=== PATIENT | male | born 1965 | race Caucasian/White ===

== ENCOUNTER → 2016-07-10 | Outpatient (CLI) | payer MEDICAID ==
[2016-07-10 12:51] LABS: Hemoglobin A1C 8.6 % (4.2-6.1)
== END | disposition home or self-care (01) ==
LOC: LABWHC1 08:28
PROVIDERS: ATTEND Family Medicine
DX: E11.9 Type 2 diabetes mellitus without complications (principal)
CPT/HCPCS: 36415; 83036

== ENCOUNTER → 2017-01-01 | Outpatient (CLI) | payer MEDICAID ==
[2017-01-01 10:45] LABS: Hemoglobin A1C 8.1 % (4.2-6.1)
== END | disposition home or self-care (01) ==
LOC: LABWHC1 09:39
PROVIDERS: ATTEND Family Medicine
DX: E11.9 Type 2 diabetes mellitus without complications (principal)
CPT/HCPCS: 36415; 83036

== ENCOUNTER → 2017-05-28 | Outpatient (CLI) | payer MEDICAID ==
[2017-05-28 08:16] LABS: Basophils # (A) 0.1 k/uL (0-0.2); Basophils % (A) 1 %; Eosinophils # (A) 0.3 k/uL (0-0.7); Eosinophils % (A) 3 %; HCT 52.7 % (39.0-53.0); HGB 17.2 gm/dL (13.0-17.5); Lymphocytes # (A) 2.8 k/uL (1.0-4.8); Lymphocytes % (A) 36 %; MCH 29.9 pg (25.0-35.0); MCHC 32.6 g/dL (31.0-37.0); MCV 91.8 fL (80.0-100.0); Mean Platelet Volume 7.6; Monocytes # (A) 0.5 k/uL (0-1.0); Monocytes % (A) 6 %; Neutrophils # (A) 3.9 k/uL (1.3-7.7); Neutrophils % (A) 50 %; Platelet Count 233 k/uL (150-450); RBC 5.74 m/uL (4.30-5.90); RDW 12.8 % (11.5-15.5); WBC 7.8 k/uL (3.8-10.6)
[2017-05-28 10:03] LABS: ALT 36 U/L (21-72); AST 31 U/L (17-59); Albumin 4.7 g/dL (3.5-5.0); Alkaline Phosphatase 69 U/L (38-126); Anion Gap 15 mmol/L; Blood Urea Nitrogen 18 mg/dL (9-20); Calcium 10.4 mg/dL (8.4-10.2); Carbon Dioxide 26 mmol/L (22-30); Chloride 102 mmol/L (98-107); Cholesterol 140 mg/dL (<200); Glucose 175 mg/dL (74-99); HDL Cholesterol 41 mg/dL (40-60); LDL Cholesterol,Calculated 54 mg/dL (0-99); Potassium 5.7 mmol/L (3.5-5.1); Sodium 143 mmol/L (137-145); Total Bilirubin 0.5 mg/dL (0.2-1.3); Total Protein 7.9 g/dL (6.3-8.2); Triglycerides 223 mg/dL (<150)
[2017-05-28 10:32] LABS: Prostate Specific Antigen 0.87 ng/mL (0.00-4.00)
[2017-05-28 20:25] LABS: Hemoglobin A1C 7.6 % (4.0-6.0)
== END | disposition home or self-care (01) ==
LOC: LABWHC1 07:35
PROVIDERS: ATTEND Family Medicine
DX: E11.9 Type 2 diabetes mellitus without complications (principal); I25.10 Atherosclerotic heart disease of native coronary artery without angina pectoris; E55.9 Vitamin D deficiency, unspecified; Z12.5 Encounter for screening for malignant neoplasm of prostate
CPT/HCPCS: 36415; 80053; 80061; 82306; 83036; 84153; 84443; 85025

== ENCOUNTER → 2018-05-05 | Outpatient (CLI) | payer MEDICAID ==
[2018-05-05 10:33] LABS: Basophils # (A) 0.1 k/uL (0-0.2); Basophils % (A) 1 %; Eosinophils # (A) 0.2 k/uL (0-0.7); Eosinophils % (A) 2 %; HCT 50.1 % (39.0-53.0); HGB 16.8 gm/dL (13.0-17.5); Lymphocytes % (A) 25 %; MCH 30.2 pg (25.0-35.0); MCHC 33.5 g/dL (31.0-37.0); MCV 90.1 fL (80.0-100.0); Mean Platelet Volume 7.5; Monocytes # (A) 0.5 k/uL (0-1.0); Monocytes % (A) 6 %; Neutrophils # (A) 5.1 k/uL (1.3-7.7); Neutrophils % (A) 64 %; Platelet Count 234 k/uL (150-450); RBC 5.55 m/uL (4.30-5.90); RDW 13.1 % (11.5-15.5); WBC 7.9 k/uL (3.8-10.6)
[2018-05-05 17:49] LABS: Albumin 4.9 g/dL (3.80-4.90); Albumin/Globulin Ratio 2.33 (1.20-2.10); Anion Gap 8.7 mmol/L (4.00-12.00); Calcium 9.8 mg/dL (8.7-10.3); Carbon Dioxide 27.3 mmol/L (21.6-31.8); Globulin 2.1 g/dL (1.6-3.3); LDL Cholesterol,Calculated 56.8 mg/dL (0.0-131.0); Potassium 4.8 mmol/L (3.5-5.5); Total Bilirubin 0.3 mg/dL (0.3-1.2); VLDL Calculation 53.2 mg/dL (5.00-40.00)
== END | disposition home or self-care (01) ==
LOC: LABWHC1 10:06
PROVIDERS: ATTEND Internal Medicine Interventional Cardiology
DX: I25.10 Atherosclerotic heart disease of native coronary artery without angina pectoris (principal); E11.9 Type 2 diabetes mellitus without complications; E78.2 Mixed hyperlipidemia
CPT/HCPCS: 36415; 80053; 80061; 84443; 85025

== ENCOUNTER → 2018-05-12 | Outpatient (CLI) | payer MEDICAID ==
[~2018-05-12] MED LIST: REGADENOSON 0.4 MG/5 ML SYRINGE IV ONE
--- NOTE | 2018-05-12 12:09 | EST ---
EXERCISE STRESS AGE: 53 SEX: M HT: 68" WT: 230 PROTOCOL: Lexiscan Cardiolite Stress Test HEART RATE REST: 72 BLOOD PRESSURE REST: 151/66 MAXIMUM HEART RATE ACHIEVED: 98 MAXIMUM BLOOD PRESSURE: 175/76 CLINICAL INFORMATION: Baseline rhythm is sinus mechanism, rate 72, normal axis and intervals, normal electrocardiogram. Baseline blood pressure 151/66 mmHg. Patient received injection of Lexiscan. Electrocardiographic monitoring revealed no evidence of diagnostic ischemic ST deviation. Cardiolite was injected per protocol. CONCLUSION: 1. Nondiagnostic electrocardiograph stress testing. 2. Nuclear images will be reported separately. MMODL / IJN: [id number] /
== END | disposition home or self-care (01) ==
LOC: RADNMMAIN 07:54
PROVIDERS: ATTEND Internal Medicine Interventional Cardiology
DX: I25.10 Atherosclerotic heart disease of native coronary artery without angina pectoris (principal)
CPT/HCPCS: 93017; J2785

== ENCOUNTER → 2018-05-12 | Outpatient (CLI) | payer MEDICAID ==
--- NOTE | 2018-05-12 14:58 | NM ---
EXAMINATION TYPE: NM stress lexiscan cardiolite DATE OF EXAM: 05/12/2018 COMPARISON: NONE HISTORY: Precordial chest pain and abnormal EKG TECHNIQUE: After the intravenous administration of 10.34 mCi Tc 99m Sestamibi - Cardiolite resting S PECT images acquired 45 minutes post injection. The patient received 0.4mg Lexiscan, 24.5 mCi Tc 99m Sestamibi - Stress images obtained [address] injection FINDINGS: Review of stress and rest SPECT images demonstrates no distinct perfusion abnormality. Gated analysi s shows normal wall motion with an estimated left ventricular ejection fraction of 64 %. IMPRESSION: No scintigraphic evidence for reversible ischemia.
== END ==
LOC: RADECHMAIN 08:36
PROVIDERS: ATTEND Internal Medicine Interventional Cardiology
DX: I25.10 Atherosclerotic heart disease of native coronary artery without angina pectoris (principal)
CPT/HCPCS: 78452; A9500

== ENCOUNTER → 2019-03-19 | Outpatient (CLI) | payer MEDICAID ==
--- NOTE | 2019-03-20 10:43 | US ---
EXAMINATION TYPE: US kidneys/renal and bladder DATE OF EXAM: 03/19/2019 COMPARISON: NONE CLINICAL HISTORY: N28.9 RENAL INSUFFICIENCY. Diabetic EXAM MEASUREMENTS: Right Kidney: 11.6 x 6.7 x 5.2 cm Left Kidney: 13.2 x 6.0 x 6.3 cm Post Void Residual Volume: 203.1 mL Right Kidney: No hydronephrosis or masses seen Left Kidney: No hydronephrosis or masses seen Bladder: wnl Bilateral Jets seen: yes Normal Post Void Residual: no, abnormal post void volume as is greater than 50.0ml. There is no evidence for hydronephrosis at this point in time. No nephrolithiasis is seen. No matthew s are identified. The urinary bladder is anechoic. Bilateral ureteral jets are seen. IMPRESSION: No distinct abnormality appreciated.
== END | disposition home or self-care (01) ==
LOC: RADUSWWP 15:46
PROVIDERS: ATTEND Family Medicine
DX: N28.9 Disorder of kidney and ureter, unspecified (principal)
CPT/HCPCS: 76770

== ENCOUNTER → 2019-05-26 | Outpatient (CLI) | payer MEDICAID ==
[2019-05-26 17:38] LABS: African American GFR (CKD) 71.7 (60.0-200.0); Anion Gap 7.4 mmol/L (4.00-12.00); BUN/Creat Ratio 21.54 Ratio (12.00-20.00); Calcium 9.7 mg/dL (8.7-10.3); Carbon Dioxide 23.6 mmol/L (21.6-31.8); Chol/HDL Ratio 3.27; LDL Cholesterol,Calculated 62.4 mg/dL (0.0-131.0); Non-African American GFR(CKD) 61.9 (60.0-200.0); VLDL Calculation 37.6 mg/dL (5.00-40.00)
[2019-05-26 18:11] LABS: Microalbumin Creatinine Ratio <30 mg/g Creat (0-30); Urine Creatinine 59.6 mg/dL
[2019-05-26 18:35] LABS: Hemoglobin A1C 8.6 % (4.0-6.0)
== END | disposition home or self-care (01) ==
LOC: LABWHC1 10:23
PROVIDERS: ATTEND Nurse Practitioner
DX: E11.65 Type 2 diabetes mellitus with hyperglycemia (principal); E78.5 Hyperlipidemia, unspecified
CPT/HCPCS: 36415; 80048; 80061; 82043; 82570; 83036

== ENCOUNTER → 2019-08-27 | Outpatient (CLI) | payer MEDICAID ==
[2019-08-27 17:00] LABS: Hemoglobin A1C 8.2 % (4.0-6.0)
== END | disposition home or self-care (01) ==
LOC: LABWHC1 08:27
PROVIDERS: ATTEND Internal Medicine
DX: E11.65 Type 2 diabetes mellitus with hyperglycemia (principal)
CPT/HCPCS: 36415; 83036

== ENCOUNTER → 2020-03-14 | Outpatient (CLI) | payer MEDICAID ==
[2020-03-14 14:17] LABS: Appearance,Urine Clear (Clear); Bilirubin,Urine Negative (Negative); Blood,Urine Negative (Negative); Color,Urine Colorless; Glucose,Urine (UA) 4+ (Negative); Ketones,Urine Negative (Negative); Leukocyte Esterase,Urine Negative (Negative); Nitrite,Urine Negative (Negative); PH, Urine 5.5 (5.0-8.0); Protein,Urine Negative (Negative); Specific Gravity,Urine 1.028 (1.001-1.035); Urobilinogen,Urine <2.0 mg/dL (<2.0)
[2020-03-14 14:30] LABS: Basophils # (A) 0.1 k/uL (0-0.2); Basophils % (A) 1 %; Eosinophils # (A) 0.2 k/uL (0-0.7); Eosinophils % (A) 2 %; HCT 49.4 % (39.0-53.0); Lymphocytes # (A) 2.1 k/uL (1.0-4.8); Lymphocytes % (A) 27 %; MCH 29.3 pg (25.0-35.0); MCHC 32.4 g/dL (31.0-37.0); MCV 90.5 fL (80.0-100.0); Mean Platelet Volume 8.1; Monocytes # (A) 0.5 k/uL (0-1.0); Monocytes % (A) 7 %; Neutrophils # (A) 4.7 k/uL (1.3-7.7); Neutrophils % (A) 61 %; Platelet Count 232 k/uL (150-450); RBC 5.46 m/uL (4.30-5.90); RDW 12.9 % (11.5-15.5); WBC 7.8 k/uL (3.8-10.6)
[2020-03-14 19:49] LABS: African American GFR (CKD) 65.1 (60.0-200.0); Albumin 4.7 g/dL (3.80-4.90); Albumin/Globulin Ratio 1.96 (1.60-3.17); Anion Gap 9.5 mmol/L (4.00-12.00); BUN/Creat Ratio 12.86 Ratio (12.00-20.00); Calcium 10.5 mg/dL (8.7-10.3); Carbon Dioxide 24.5 mmol/L (21.6-31.8); Globulin 2.4 g/dL (1.6-3.3); Non-African American GFR(CKD) 56.2 (60.0-200.0); Potassium 5.2 mmol/L (3.5-5.5); Total Bilirubin 0.3 mg/dL (0.3-1.2); Total Protein 7.1 g/dL (6.2-8.2)
[2020-03-14 20:28] LABS: Hemoglobin A1C 10.1 % (4.0-6.0)
== END | disposition home or self-care (01) ==
LOC: LABWHC1 12:14
PROVIDERS: ATTEND Family Medicine
DX: I10 Essential (primary) hypertension (principal); E11.65 Type 2 diabetes mellitus with hyperglycemia; E55.9 Vitamin D deficiency, unspecified; R30.0 Dysuria; R35.0 Frequency of micturition
CPT/HCPCS: 36415; 80053; 81003; 82306; 83036; 84153; 84443; 85025; 87086

== ENCOUNTER 2022-09-14 09:44 | Day surgery (SDC) | payer MEDICAID ==
[~2022-09-14 09:44] MED LIST changes: +ALPRAZolam 0.25 MG TAB PO PRN; +ALPRAZolam 0.5 MG TAB PO PRN; +ASPIRIN 325 MG TAB PO PRN; +HEPARIN SODIUM,PORCINE 10,000 UNIT in SODIUM CHLORIDE 0.9% 1,000 ML IRRIGATION PRN; +HEPARIN SODIUM,PORCINE 2,500 UNIT in SODIUM CHLORIDE 0.9% 250 ML IRRIGATION PRN; -REGADENOSON 0.4 MG/5 ML SYRINGE IV ONE; +SODIUM CHLORIDE 0.9% 1,000 ML in EMPTY BAG 1 BAG IV ONE; +ZOLPIDEM 5 MG TAB PO PRN
[2022-09-14 10:13] VITALS: RESP 18; TEMP 97.7
[2022-09-14 10:16] LABS: Basophils # (A) 0.1 k/uL (0-0.2); Basophils % (A) 1 %; Eosinophils # (A) 0.2 k/uL (0-0.7); Eosinophils % (A) 2 %; HCT 50.6 % (39.0-53.0); HGB 16.6 gm/dL (13.0-17.5); Lymphocytes # (A) 1.8 k/uL (1.0-4.8); Lymphocytes % (A) 20 %; MCH 30.1 pg (25.0-35.0); MCHC 32.8 g/dL (31.0-37.0); MCV 91.8 fL (80.0-100.0); Mean Platelet Volume 8.6; Monocytes # (A) 0.6 k/uL (0-1.0); Monocytes % (A) 7 %; Neutrophils # (A) 5.9 k/uL (1.3-7.7); Neutrophils % (A) 67 %; Platelet Count 216 k/uL (150-450); RBC 5.52 m/uL (4.30-5.90); RDW 12.5 % (11.5-15.5); WBC 8.7 k/uL (3.8-10.6)
[2022-09-14 10:29] LABS: Glucose,Whole Blood 138 mg/dL (70-110)
[2022-09-14 10:31] LABS: Calcium 9.7 mg/dL (8.4-10.2); Potassium 4.8 mmol/L (3.5-5.1)
[2022-09-14] MEDS ORDERED: MIDAZOLAM 2 MG/2 ML VIAL IV ONE (11:59)
[2022-09-14] MEDS ORDERED: fentaNYL (PF) 50 MCG/ML 2 ML AMP IV ONE (11:59)
[2022-09-14] MEDS ORDERED: LIDOCAINE 1% INJ 10MG/ML (20 ML MDV) SQ ONE (11:59)
[2022-09-14] MEDS ORDERED: HEPARIN SODIUM 1,000 UN/ML (10ML VL) IV ONE (12:09)
[2022-09-14] MEDS ORDERED: IOPAMIDOL-250 100ML BTL INTRAARTER ONE (12:52)
[2022-09-14] MEDS ORDERED: CLOPIDOGREL 75 MG TAB PO ONE (12:55)
--- NOTE | 2022-09-14 13:06 | P.OP ---
Date of Procedure: 09/14/22 Description of Procedure: Pre-Op Dx: Left lower extremity claudication Colbert classification 3 Post-Op Dx: Left SFA chronic total occlusion Procedure: 1. Ultrasound guided right femoral artery access 2. Left selective angiogram 3. Percutaenous balloon angioplasty with 5 x 40 mm chocolate balloon followed by a 5 x 80 mm drug-eluting balloon 5. 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 Wood's office and found to have decreased blood flow on arterial Doppler with ABIs of 0.70 on the left. He states he can only walk 100-200 feet without significant cramping in his left calf. He is also experiencing some cramping at night. Operative narrative: After written and informed consent was obtained the patient all risks, benefits and complications were described patient is brought to the [facility] and laid supine position. The area of the right groin was prepped and draped in usual sterile fashion. Timeout was performed in normal fashion. Utilizing ultrasound the right femoral artery was accessed and a 5 F sheath was placed. 035 Glidewire was then placed into the aorta followed by an RBI catheter and the left iliac was accessed in an up and over fashion. Selective angiogram was then obtained of the left lower extremity demonstrating chronic total occlusion of the SFA with three-vessel takeoff and runoff to the ankle after reconstitution. Patient was given heparin and followed with ACTs. An 035 Glidewire advantage was then placed in an up and over fashion and the 5 F short sheath was removed and replaced with an up and over 6 F sheath. Selective angiogram was again obtained demonstrating occlusion of the left SFA roughly 30 mm. Utilizing 035 Glidewire and quick cross catheter the lesion was crossed and selective angiogram distally was obtained demonstrating good intraluminal access. Balloon angioplasty was then performed with a 5 x 40 mm chocolate balloon. Angiogram was then obtained demonstrating improved lumen but still with 45-50% stenosis. A 5 x 80 mm impact drug-eluting balloon was then placed and balloon angioplasty was performed. Final angiogram demonstrated 90% improvement of the lesion with good brisk flow to the ankle with two-vessel runoff. All guidewires and catheters were then removed the sheath was removed and replaced with a short 6 F sheath and utilizing a Vascade closure device the access was closed. Pressure was placed for hemostasis. The patient tolerated the procedure well and had palpable PT pulses and was sent to recovery.
[2022-09-14 16:15] VITALS: BP 102/59; PULSE 72
--- NOTE | 2022-09-14 17:12 | IR ---
EXAMINATION TYPE: IR angio abdominal w runoff DATE OF EXAM: 09/14/2022 FLUOROSCOPY Fluoroscopy time of 11.6 minutes was used during abdominal aortic injection with bilateral lower extr emity runoff for left leg pain. 16 image/s document/s the procedure. [id number].
== END 2022-09-14 16:18 | disposition home or self-care (01) ==
LOC: CATHCVL 09:44
PROVIDERS: ATTEND Surgery
DX: I70.213 Atherosclerosis of native arteries of extremities with intermittent claudication, bilateral legs (principal); I70.92 Chronic total occlusion of artery of the extremities; I25.10 Atherosclerotic heart disease of native coronary artery without angina pectoris; I10 Essential (primary) hypertension; E11.22 Type 2 diabetes mellitus with diabetic chronic kidney disease; E11.65 Type 2 diabetes mellitus with hyperglycemia; J45.909 Unspecified asthma, uncomplicated; E78.5 Hyperlipidemia, unspecified; Z79.4 Long term (current) use of insulin; Z79.82 Long term (current) use of aspirin; Z79.84 Long term (current) use of oral hypoglycemic drugs; Z79.899 Other long term (current) drug therapy; Z95.5 Presence of coronary angioplasty implant and graft; Z88.0 Allergy status to penicillin
CPT/HCPCS: 76937; 99152; 99153 ×3; 37224; 80048; 85025; C1894 ×2; C1769 ×5; C1887; C2623 ×2; C1760; J2250; J2001; J3010; J1644; Q9966; 75710

== ENCOUNTER → 2023-07-09 | Outpatient (CLI) | payer MEDICAID | END | disposition home or self-care (01) | LOC: LABWHC1 10:16 | PROVIDERS: ATTEND Family Medicine | DX: E11.65 Type 2 diabetes mellitus with hyperglycemia (principal) | CPT/HCPCS: 36415; 83036 ==

== ENCOUNTER → 2023-09-16 | Outpatient (CLI) | payer MEDICAID, OTHER ==
--- NOTE | 2023-09-17 22:25 | US ---
EXAMINATION TYPE: US kidneys/renal and bladder DATE OF EXAM: 09/16/2023 COMPARISON: US CLINICAL INDICATION: Male, 58 years old with history of R10.9 UNSPECIFIED ABDOMINAL PAIN; Pt states r ight flank pain EXAM MEASUREMENTS: Right Kidney: 10.9 x 5.4 x 6.9 cm Left Kidney: 12.5 x 5.6 x 4.8 cm Right Kidney: No hydronephrosis or masses seen Left Kidney: Lobulated contour, no evidence of hydro Bladder: wnl Bilateral Jets seen: No IMPRESSION: 1. No suspicious renal ultrasound abnormality.
== END | disposition home or self-care (01) ==
LOC: RADUSWWP 15:46
PROVIDERS: ATTEND Family Medicine
DX: R10.9 Unspecified abdominal pain (principal)
CPT/HCPCS: 76770

== ENCOUNTER 2024-08-08 08:22 | Day surgery (SDC) | payer OTHER ==
[2024-08-06 12:59] VITALS: BMI 36.5
[~2024-08-08 08:22] MED LIST changes: -ASPIRIN 325 MG TAB PO PRN; +HEPARIN SODIUM,PORCINE (1 ML) 2,500 UNIT in SODIUM CHLORIDE 0.9% 250 ML IRRIGATION PRN; -HEPARIN SODIUM,PORCINE 10,000 UNIT in SODIUM CHLORIDE 0.9% 1,000 ML IRRIGATION PRN; -HEPARIN SODIUM,PORCINE 2,500 UNIT in SODIUM CHLORIDE 0.9% 250 ML IRRIGATION PRN; -SODIUM CHLORIDE 0.9% 1,000 ML in EMPTY BAG 1 BAG IV ONE
[2024-08-08 08:40] VITALS: RESP 18; TEMP 98.1
[2024-08-08] MEDS: EMPTY BAG 1 BAG with SODIUM CHLORIDE 0.9% 1,000 ML IV SCH (08:41)
[2024-08-08] MEDS: IV FLUID CONTINUATION 1,000 ML IV ONE (08:42)
[2024-08-08 08:57] LABS: Basophils # (A) 0.04 10*3/uL (0.00-0.10); Basophils % (A) 0.7 %; Eosinophils # (A) 0.18 10*3/uL (0.04-0.35); Eosinophils % (A) 3.4 %; HCT 44.5 % (39.6-50.0); HGB 15.6 g/dL (13.0-17.0); Lymphocytes # (A) 1.42 10*3/uL (0.90-5.00); Lymphocytes % (A) 26.4 %; MCH 30.5 pg (27.0-32.0); MCHC 35.1 g/dL (32.0-37.0); MCV 86.9 fL (80.0-97.0); Mean Platelet Volume 11.1 fL (9.5-12.2); Monocytes # (A) 0.62 10*3/uL (0.20-1.00); Monocytes % (A) 11.5 %; Neutrophils % (A) 57.8 %; Platelet Count 184 10*3/uL (140-440); RBC 5.12 10*6/uL (4.40-5.60); RDW 12.1 % (11.5-14.5); WBC 5.37 10*3/uL (4.50-10.00)
[2024-08-08 09:04] LABS: African American GFR (CKD) 70 (>60 ml/min/1.73 sqM); Anion Gap 9 mmol/L; Blood Urea Nitrogen 25 mg/dL (9-20); Calcium 9.9 mg/dL (8.4-10.2); Carbon Dioxide 28 mmol/L (22-30); Chloride 98 mmol/L (98-107); Glucose 216 mg/dL (74-99); Non-African American GFR(CKD) 60 (>60 ml/min/1.73 sqM); Potassium 4.2 mmol/L (3.5-5.1); Sodium 135 mmol/L (137-145)
[2024-08-08] MEDS: HEPARIN SODIUM,PORCINE 10,000 UNIT in SODIUM CHLORIDE 0.9% 1,000 ML IRRIGATION PRN (10:55)
[2024-08-08] MEDS: MIDAZOLAM HCL 10 MG/10 ML VIAL IVP ONE (11:00)
[2024-08-08] MEDS: fentaNYL (PF) 50 MCG/ML 2 ML AMP IVP ONE (11:00)
[2024-08-08] MEDS: LIDOCAINE 1% INJ 10MG/ML (20 ML MDV) SQ ONE (11:03)
[2024-08-08] MEDS: HEPARIN SODIUM 1,000 UN/ML (10ML VL) IV ONE (11:23)
[2024-08-08] MEDS: IOPAMIDOL-370 100ML BTL INJ ONE (11:52)
--- NOTE | 2024-08-08 12:03 | P.OP ---
Date of Procedure: 08/08/24 Preoperative Diagnosis: Disabling claudication Kadi classification 3 Bilateral SFA occlusive disease Postoperative Diagnosis: Disabling claudication [place] classification 3 Right SFA occlusive disease, calcific stenosis greater than 80% Procedure(s) Performed: Ultrasound-guided left common femoral artery access Aortogram with right lower extremity selective angiogram third order Percutaneous transluminal balloon angioplasty of the SFA Left lower extremity selective angiogram second order Percutaneous closure of the left common femoral artery with Vascade Conscious sedation x 47 minutes Anesthesia: local Surgeon: Rito Kent Estimated Blood Loss (ml): 5 Pathology: none sent Condition: stable Disposition: PACU Indications for Procedure: 59-year-old gentleman with history of lower extremity claudication states he can only walk 50 to 100 feet without severe pain in his calf. He had ABIs that demonstrated 0.5 on the right and 0.77 on the left. He is also dealing with a wound on the left foot/plantar region that has been slow to heal and therefore presents today for intervention of the right lower extremity as well as angiogram of the left lower extremity to determine if there is any further intervention that can be done to the left leg. Description of Procedure: After written and informed consent was obtained the patient all risks, benefits and complications were described patient is brought to the Door Person and laid supine position. The area of the left groin was prepped and draped in usual sterile fashion. Timeout was performed in normal fashion. Utilizing ultrasound the left femoral artery was accessed and a 6 F sheath was placed. 035 Glidewire was then placed into the aorta followed by an RBI catheter and the right iliac was accessed in an up and over fashion. Selective angiogram was then obtained of the right lower extremity demonstrating calcific disease at the midportion of the SFA roughly 100 mm with greater than 80% stenosis. Patient was given heparin and followed with ACTs. An 035 Glidewire advantage was then placed in an up and over fashion and the 6 F short sheath was removed and replaced with an up and over 6 F sheath. Selective angiogram was again obtained demonstrating occlusion/stenosis of the right SFA. Utilizing 035 Glidewire and quick cross catheter the lesion was crossed and selective angiogram distally was obtained demonstrating good intraluminal access. Once across the lesion the area was ballooned with a 5 x 120 mm chocolate balloon followed by a 5 x 120 mm drug- eluting Impact Admiral Balloon which did demonstrate improvement of the stenotic area. Final angiogram demonstrated brisk flow down to the foot with two-vessel runoff. All guidewires and catheters were then removed the sheath was removed and replaced with a short 6 F sheath and runoff of the left lower extremity was obtained demonstrating brisk flow to the popliteal with some dense calcification noted and no severe stenosis. Two-vessel runoff to the ankle. A Vascade closure device was then used and the access was closed. Pressure was placed for hemostasis. The patient tolerated the procedure well and had palpable PT pulses and was sent to recovery.
--- NOTE | 2024-08-08 13:21 | IR ---
EXAMINATION TYPE: IR mining captain femoral popliteal DATE OF EXAM: 08/08/[address] refer to vascular surgery procedure note for complete details. The images show aortic injection with arteriogram of the right lower extremity right leg pain, 9.0min fluoro, [id number] image is submitted. [facility], Workstation: [facility], 08/08/2024 1:19 PM
[2024-08-08 16:57] VITALS: BP 176/82; PULSE 52
== END 2024-08-08 16:15 | disposition home or self-care (01) ==
LOC: CATHCVL 08:22
PROVIDERS: ATTEND Surgery
DX: I70.223 Atherosclerosis of native arteries of extremities with rest pain, bilateral legs (principal); I10 Essential (primary) hypertension; E11.40 Type 2 diabetes mellitus with diabetic neuropathy, unspecified; Z79.4 Long term (current) use of insulin; Z79.82 Long term (current) use of aspirin; Z79.85 Long-term (current) use of injectable non-insulin antidiabetic drugs; Z88.0 Allergy status to penicillin
CPT/HCPCS: 37224; 80048; 85025; C1894 ×2; C1769 ×3; C1887; C1725; C1760; C2623; J1644 ×2; J2003; J3010; Q9967; J2250; 75710

== ENCOUNTER → 2024-09-03 | Outpatient (CLI) | payer OTHER ==
[2024-09-03 15:42] LABS: BUN/Creat Ratio 17.86 Ratio (12.00-20.00); Carbon Dioxide 24.7 mmol/L (21.6-31.8); Chloride 99 mmol/L (96-109); Glucose 267 mg/dL (70-110); Potassium 4.4 mmol/L (3.5-5.5); Sodium 135 mmol/L (135-145)
[2024-09-03 15:43] LABS: ALT 28 U/L (10-49); AST 20 U/L (14-35); Albumin 4.3 g/dL (3.8-4.9); Albumin/Globulin Ratio 1.59 Ratio (1.60-3.17); Alkaline Phosphatase 90 U/L (41-126); Calcium 9.8 mg/dL (8.7-10.3); Globulin 2.7 g/dL (1.6-3.3); Total Bilirubin 0.3 mg/dL (0.3-1.2)
[2024-09-03 15:44] LABS: Basophils # (A) 0.05 X 10*3/uL (0.00-0.10); Eosinophils # (A) 0.09 X 10*3/uL (0.04-0.35); Eosinophils % (A) 1.9 %; HCT 45.7 % (39.6-50.0); HGB 14.7 g/dL (13.0-17.0); Lymphocytes # (A) 1.44 X 10*3/uL (0.90-5.00); Lymphocytes % (A) 30.2 %; MCH 29.1 pg (27.0-32.0); MCHC 32.2 g/dL (32.0-37.0); MCV 90.5 FL (80.0-97.0); Mean Platelet Volume 11.7 FL (9.5-12.2); Monocytes # (A) 0.54 X 10*3/uL (0.20-1.00); Monocytes % (A) 11.3 %; NRBC Per 100 WBC 0 X 10*3/uL (0.00-0.01); Neutrophils # (A) 2.64 X 10*3/uL (1.80-7.70); Neutrophils % (A) 55.4 %; Platelet Count 183 X 10*3/uL (140-440); RBC 5.05 X 10*6/uL (4.40-5.60); RDW 12.6 % (11.5-14.5); WBC 4.77 X 10*3/uL (4.50-10.00)
== END | disposition home or self-care (01) ==
LOC: LABWHC1 07:48
PROVIDERS: ATTEND Family Medicine
DX: Z51.81 Encounter for therapeutic drug level monitoring (principal); E11.65 Type 2 diabetes mellitus with hyperglycemia; Z79.4 Long term (current) use of insulin; I10 Essential (primary) hypertension; E78.5 Hyperlipidemia, unspecified
CPT/HCPCS: 36415; 80053; 83036; 84443; 85025